=== PATIENT | female | born 1975 | race African-American/Black ===

== ENCOUNTER → 2016-06-13 | Outpatient (REF) | payer OTHER | LOC: M SFHCLERA 15:15 | PROVIDERS: ATTEND Physician Assistant | DX: N76.0 Acute vaginitis (principal) ==

== ENCOUNTER → 2017-08-27 | Outpatient (CLI) | payer OTHER ==
[~2017-08-27] MED LIST: ISOVUE-370 76% 100ML VIAL (Q9967) As Ordered
== END ==
LOC: M RADPRO 12:12
DX: N97.9 Female infertility, unspecified (principal); Q51.2 Other doubling of uterus
CPT/HCPCS: 58340